=== PATIENT | male | born 1960 | race African-American/Black ===

== ENCOUNTER 2017-03-07 08:10 | Day surgery (SDC) | payer BC ==
[2017-03-05 12:51] VITALS: BMI 29.9
[2017-03-07] MEDS ORDERED: PROPOFOL 20 ML ONE ×3 (08:43→09:52)
[2017-03-07 10:34] VITALS: BP 125/71; PULSE 84; TEMP 98.1
--- NOTE | 2017-03-09 12:51 | PATH ---
Surgical Pathology Report Patient Name: LANRE COLLINS [facility]. Rec. #: [id number] /Age/Gender: 1960 (Age: 56) / M Account: [id number] [facility] Taken: 03/07/2017 Received: 03/07/2017 Reported: 03/09/2017 Physicians: Liliana Stephens M.D. Specimen(s) Received A: BX SECOND PORTION DUODENUM B: BX ANTRUM C: BX GE JUNCTION Clinical History Gastritis Rule out celiac disease, rule out gastritis, rule out GERD, erosions in antrum, gastritis Final Diagnosis A. DUODENUM, SECOND PORTION, BIOPSY: DUODENAL MUCOSA WITH NO PATHOLOGIC CHANGES. NO HISTOLOGIC EVIDENCE OF GLUTEN SENSITIVE ENTEROPATHY (CELIAC SPRUE) IDENTIFIED. B. STOMACH, ANTRUM, BIOPSY: MILD CHRONIC GASTRITIS WITH FOCAL REACTIVE GASTROPATHY. IMMUNOSTAIN FOR H. PYLORI IS NEGATIVE. C. GE JUNCTION, BIOPSY: GASTRIC TYPE MUCOSA WITH MILD CHRONIC INFLAMMATION. NO INTESTINAL METAPLASIA IDENTIFIED (NO BARGER'S IDENTIFIED). Electronically Signed Estiven Graves M.D. Gross Description A. Received in formalin, labeled "second portion of duodenum" is a tran, irregular portion of soft tissue measuring 0.7 cm. in greatest dimension. The specimen is submitted in toto in one cassette. B. Received in formalin, labeled "antrum" is a tran, irregular portion of soft tissue measuring 0.5 cm. in greatest dimension. The specimen is submitted in toto in one cassette. C. Received in formalin, labeled "GE junction" is a trna, irregular portion of soft tissue measuring 0.4 cm. in greatest dimension. The specimen is submitted in toto in one cassette. 03/08/201703/08/2017
== END 2017-03-07 10:25 | disposition home or self-care (01) ==
LOC: FASU-ENDO 08:10
PROVIDERS: ATTEND Internal Medicine Gastroenterology
PROC: 0DB58ZX Excision of Esophagus, Via Natural or Artificial Opening Endoscopic, Diagnostic (ICD-10-PCS; 2017-03-07)
PROC: 0DB98ZX Excision of Duodenum, Via Natural or Artificial Opening Endoscopic, Diagnostic (ICD-10-PCS; principal; 2017-03-07 09:27)
PROC: 0DB68ZX Excision of Stomach, Via Natural or Artificial Opening Endoscopic, Diagnostic (ICD-10-PCS; 2017-03-07 09:27)
DX: K29.50 Unspecified chronic gastritis without bleeding (principal); K31.89 Other diseases of stomach and duodenum; K31.9 Disease of stomach and duodenum, unspecified
CPT/HCPCS: 88305-TC; 88342-TC

== ENCOUNTER 2017-08-01 11:05 | Day surgery (SDC) | payer BC ==
[2017-07-26 09:20] VITALS: BMI 29.9
[2017-08-01] MEDS ORDERED: PROPOFOL 20 ML ONE ×2 (11:29)
[2017-08-01 11:38] VITALS: TEMP 97.9
[2017-08-01 13:05] VITALS: BP 127/75; PULSE 75
--- NOTE | 2017-08-03 17:37 | PATH ---
Surgical Pathology Report Patient Name: LANRE COLLINS [facility]. Rec. #: [id number] /Age/Gender: 1960 (Age: 56) / M Account: [id number] Location: [facility]-ENDOSCOPY Taken: 08/01/2017 Received: 08/01/2017 Reported: 08/03/2017 Physicians: Liliana Stephens M.D. Specimen(s) Received BX SIGMOID Clinical History Preoperative diagnosis: Diverticulosis Postoperative diagnosis: Rule out microscopic colitis, diverticulosis Final Diagnosis SIGMOID, BIOPSY: COLONIC MUCOSA SHOWING MILD SURFACE HYPERPLASTIC CHANGE. Note: Features suggestive of microscopic colitis are not identified in this biopsy. Electronically Signed Alysa Hartley M.D. Gross Description Received in formalin, labeled "sigmoid" is a tran, irregular portion of soft tissue measuring 0.3 cm. in greatest dimension. The specimen is submitted in toto in one cassette. 08/02/201708/02/2017
== END 2017-08-01 13:10 | disposition home or self-care (01) ==
LOC: FASU-ENDO 11:05
PROVIDERS: ATTEND Internal Medicine Gastroenterology
PROC: 0DJD8ZZ Inspection of Lower Intestinal Tract, Via Natural or Artificial Opening Endoscopic (ICD-10-PCS; principal; 2017-08-01 12:22)
DX: K57.30 Diverticulosis of large intestine without perforation or abscess without bleeding (principal); K64.8 Other hemorrhoids
CPT/HCPCS: 88305-TC

== ENCOUNTER 2022-05-12 09:19 | Day surgery (SDC) | payer BC ==
[2022-05-11 12:56] VITALS: BMI 29.9
[2022-05-12 11:15] VITALS: RESP 18; TEMP 98.1
[2022-05-12 11:33] VITALS: BP 138/82; PULSE 88
== END 2022-05-12 11:30 | disposition home or self-care (01) ==
LOC: FASU-ENDO 09:19
PROVIDERS: ATTEND Internal Medicine Gastroenterology
PROC: 0DJD8ZZ Inspection of Lower Intestinal Tract, Via Natural or Artificial Opening Endoscopic (ICD-10-PCS; principal; 2022-05-12 10:45)
DX: K92.1 Melena (principal); K57.30 Diverticulosis of large intestine without perforation or abscess without bleeding; K64.1 Second degree hemorrhoids